=== PATIENT | male | born 1980 | race Two or more races ===

== ENCOUNTER 2025-03-10 18:29 | Inpatient (IN) | payer MEDICAID, OTHER ==
[~2025-03-10] VITALS: Ht 162.6 cm; Wt 67.2 kg
--- NOTE | 2025-03-10 19:06 | ED.PDOC ---
HPI Comments 43 year old male who came to ER by EMS for chest pains. Patient denies any medical problems nor does he take any medications. Patient does not have a PCP and has not seen a doctor in several years. States he was at work earlier, when he decided to drink a energy drink (Red Bull), something that he never does, and shortly afterwards he started having left sided chest pains, sharp, constant, unprovoked, radiating to his left arm. Also complaining of palpitations. Patient was given aspirin and nitroglycerin prior to arrival to the ER Chief Complaint: Chest Pain Time Seen by MD: 19:05 Reviewed Notes: Porcelain Turner Notes Allergies: Coded Allergies: NO KNOWN ALLERGIES (Unverified , 03/10/25) Information Source: Patient, Emergency Med Personnel Mode of Arrival: EMS Severity: Moderate Timing: Hours Duration: Since onset Prehospital treatment: ASA, NTG Location: Chest (L) Radiation: Arm (L) Quality: Sharp, Other (Palpitations) Onset: With Light Exertion Cardiac Risk Factors: None PE Risk Factors: None History of: None Associated Signs and Symptoms: Palpitations Review of Systems REVIEW OF SYSTEMS: No fever, no chills, or fatigue HEENT: No sore throat, no earache, no congestion, no neck pain. Cardiac: *(+) chest pain. (+) palpitations. Lungs: No shortness of breath, no cough. GI: No nausea, no vomiting, no diarrhea, no constipation, no abdominal pain : No dysuria, frequency, or urgency. No hematuria. Musculoskeletal: No joint pain , no joint swelling, no extremity edema. Skin: No rash, no itching. Neuro: No headache, no dizziness, no weakness Vital Signs Vital Signs Date Time Temp Pulse Resp B/P (MAP) Pulse Ox O2 Delivery O2 Flow Rate FiO2 03/10/25 20:03 99 16 97 Room Air* 0 21 03/10/25 20:02 98.3 145/82 (103) 98.3 Physical Exam General: Awake, alert and oriented. No acute distress. Skin: Skin in warm, dry and intact. Appropriate color for ethnicity. Nailbeds pink with no cyanosis. HEENT: The head is normocephalic and atraumatic. Conjunctivae are clear without exudates or hemorrhage. Sclera is non-icteric. EOM are intact. No signs of nystagmus. Eyelids are normal in appearance without swelling or lesions. Oral mucosa is pink and moist Neck: The neck is supple with normal range of motion. No JVD. Cardiac: Rapid rate, regular rhythm.. No murmurs, gallops, or rubs are auscultated. Respiratory: No signs of respiratory distress. Lung sounds are clear in all lobes bilaterally without rales, rhonchi, or wheezes. Abdominal: Abdomen is soft, non-tender without distention. Bowel sounds are present and normoactive in all four quadrants. Extremities: Upper and lower extremities are atraumatic in appearance without deformity or edema. Neurological: The patient is awake, alert and oriented to person, place, and time with normal speech. Speech is clear. There is no facial asymmetry. Psychiatric: Appropriate mood and affect. Good judgement and insight. No visual or auditory hallucinations. Past Medical History PAST MEDICAL HISTORY: Denies Surgical History: Denies all surgeries Family History Family History: Reviewed,noncontributory to illness Social History Smoker: Non-Smoker Alcohol: Denies ETOH Use Drugs: Denies Drug Use Lives In: Home EKG EKG : Pulse Rate (adult): 118 Cardiac Rhythm: ST Comments No STEMI Was a procedure done? Was a procedure done?: No CP Differential Dx Differential Diagnosis: Angina, Anxiety / Panic Attack, Electrolyte Disorder, Hyperventilation, Sinus Tachycardia Differential Diagnosis: Angina, Chest Wall Pain, Costochondritis, Esophageal reflux/spasm, Gastritis, Myocardial Infarction X-Ray, Labs, Meds, VS Vital Signs Date Time Temp Pulse Resp B/P (MAP) Pulse Ox O2 Delivery O2 Flow Rate FiO2 03/10/25 20:03 99 16 97 Room Air* 0 21 03/10/25 20:02 98.3 99 16 145/82 (103) 97 98.3 03/10/25 19:15 98.6 114 18 152/95 (114) 96 98.6 03/10/25 19:06 118 03/10/25 18:30 118 Lab Test 03/10/25 20:06 03/10/25 19:14 Range/Units Troponin I High Sensitivity Pending < 3 L </=54 ng/L White Blood Count 8.9 4.4-10.8 10^3/uL Red Blood Count 5.69 4.5-5.90 10^6/uL Hemoglobin 17.1 13.5-17.5 g/dL Hematocrit 48.8 41.0-53.0 % Mean Corpuscular Volume 85.8 80.0-100.0 fL Mean Corpuscular Hemoglobin 30.1 28.0-32.0 pg Mean Corpuscular Hemoglobin Concent 35.1 32.0-36.0 g/dL Red Cell Distribution Width 13.5 11.8-14.3 % Platelet Count 262 140-450 10^3/uL Mean Platelet Volume 8.9 6.9-10.8 fL Neutrophils (%) (Auto) 85.9 H 37.0-80.0 % Lymphocytes (%) (Auto) 8.4 L 10.0-50.0 % Monocytes (%) (Auto) 5.1 0.0-12.0 % Eosinophils (%) (Auto) 0.0 0.0-7.0 % Basophils (%) (Auto) 0.6 0.0-2.0 % Neutrophils # (Auto) 7.7 1.6-8.6 10 ^3/uL Lymphocytes # (Auto) 0.7 0.4-5.4 10 ^3/uL Monocytes # (Auto) 0.5 0-1.3 10 ^3/uL Eosinophils # (Auto) 0 0-0.8 10 ^3/uL Basophils # (Auto) 0.1 0-0.2 10 ^3/uL Nucleated Red Blood Cells 0.2 % Sodium Level 134 L 136-145 mmol/L Potassium Level 3.7 3.5-5.1 mmol/L Chloride Level 94 L 98-107 mmol/L Carbon Dioxide Level 20 20-31 mmol/L Anion Gap 20 H 5-15 Blood Urea Nitrogen 7 L 9-23 mg/dL Creatinine 1.09 0.700-1.30 mg/dL Glomerular Filtration Rate Calc 86 >90 mL/min BUN/Creatinine Ratio 6.4 L 10.0-20.0 Serum Glucose 381 H 74-106 mg/dL Calcium Level 11.1 H 8.7-10.4 mg/dL Current Medications Medications (Trade) Dose Ordered Sig/Loco Route Start Time Stop Time Status Last Admin Aspirin 324 mg ONCE ONCE PO 03/10/25 19:00 03/10/25 19:01 DC 03/10/25 20:01 Sodium Chloride 1,000 ml @ 1,000 mls/hr Q1H ONCE IV 5/10/25 19:00 03/10/25 19:59 DC 03/10/25 20:01 Lorazepam (Ativan Tablet) 0.5 mg ONCE ONCE PO 03/10/25 19:00 03/10/25 19:01 DC 03/10/25 20:00 XY CHEST TWO VIEWS ROUTINE CLINICAL HISTORY: Chest pain COMPARISON: None TECHNIQUE: Frontal and lateral view of the chest was obtained FINDINGS: Lines and Tubes: None Lungs: No focal consolidation. Pleura: No effusion. No pneumothorax. Cardiomediastinal contours: Unremarkable Bones: No acute osseous abnormality. IMPRESSION: 1. No acute cardiopulmonary disease. Time of 1ST Reevaluation: 19: Reevaluation 1ST: Unchanged Patient Education/Counseling: Other (Need for admission) Family Education/Counseling: No Family Present Departure 1 Departure Time of Disposition: : Impression: Primary Impression: Chest pain Additional Impression: DKA (diabetic ketoacidosis) Disposition: ADMITTED INPATIENT Condition: Stable Comments 44-year-old male who presents with chest pain. Found to be in new onset diabetes/DKA IV fluids bolus, insulin bolus initiated in the ED Patient admitted to hospitalist service for further treatment, evaluation and monitoring. Extensive evaluation was performed in attempt to identify or rule out: (See differential diagnosis section) The following tests were ordered, and results were reviewed by me and discussed with patient: (See diagnostic results section) The following test were independently interpreted by me: EKG, chest x-ray I reviewed and agreed with the following test results read by other providers: Chest x-ray I reviewed the following notes from the pt's past medical encounters: N/A Additional information was gathered from interviewing the following independent historians: EMS personnel Discussion of management or test interpretation with external physician/other qualified health career services manager: N/A Addressed an acute or chronic illness that poses a threat to life or bodily function: DKA Decision regarding hospitalization or escalation of hospital level of care: Risk and benefits of admission for further treatment of patient's condition was considered. Due to patient's current clinical condition, high risk of decline and poor outcome if discharged and need for further inpatient management and monitoring, patient will be admitted to the hospital. Discussed with patient. Drug therapy requiring intensive monitoring for toxicity: IV insulin Parenteral controlled substances: N/A Decision regarding elective major surgery with identified patient or procedure risk factors: N/A Decision regarding emergency major surgery: N/A Decision not to resuscitate or to de-escalate care because of poor prognosis: N/A Diagnosis or treatment significantly limited by social determinants of health: N/A Critical Care Note Critical Care Time?: Yes (35 min-critical care time only) Critical care comment: Due to a high probability of clinically significant, life threatening deterioration, the patient required my highest level of preparedness to intervene emergently and I personally spent this critical care time directly and personally managing the patient. This critical care time included obtaining a history; examining the patient; pulse oximetry; ordering and review of studies; arranging urgent treatment with development of a management plan; evaluation of patient's response to treatment; frequent reassessment; and, discussions with other providers. This critical care time was performed to assess and manage the high probability of imminent, life-threatening deterioration that could result in multi-organ failure. It was exclusive of separately billable procedures and treating other patients and teaching time. Please see my other sections and the rest of the note for further information on patient assessment and treatment. Stability Stability form required: No Heart Score Heart Score: Heart Score Response (Comments) Value History Moderate Suspicious 1 EKG Repolarization Disturb 1 Age <45 0 Risk Factors No known risk factors 0 Troponin Normal limit 0 Total 2 I personally scribed for AMELIA SEQUEIRA MD ([email or web address]) on 03/10/25 at 19:06. Electronically submitted by Heriberto Kitchen ([facility]). I personally scribed for AMELIA SEQUEIRA MD ([email or web address]) on 03/10/25 at 20:00. Electronically submitted by Heriberto Kitchen ([facility]). AMELIA SEQUEIRA MD March 10, 2025 19:06
--- NOTE | 2025-03-10 19:25 | DVH ---
XY CHEST TWO VIEWS ROUTINE CLINICAL HISTORY: Chest pain COMPARISON: None TECHNIQUE: Frontal and lateral view of the chest was obtained FINDINGS: Lines and Tubes: None Lungs: No focal consolidation. Pleura: No effusion. No pneumothorax. Cardiomediastinal contours: Unremarkable Bones: No acute osseous abnormality. IMPRESSION: 1. No acute cardiopulmonary disease. HS:Y
[2025-03-10 19:33] LABS: Basophils # (auto) 0.1 10 ^3/uL (0-0.2); Basophils % (auto) 0.6 % (0.0-2.0); Eosinophils # (auto) 0 10 ^3/uL (0-0.8); Hematocrit 48.8 % (41.0-53.0); Hemoglobin 17.1 g/dL (13.5-17.5); Lymphocytes # (auto) 0.7 10 ^3/uL (0.4-5.4); Lymphocytes % (auto) 8.4 % (10.0-50.0); Mean Corpuscular Hemoglobin 30.1 pg (28.0-32.0); Mean Corpuscular Hgb Conc. 35.1 g/dL (32.0-36.0); Mean Corpuscular Volume 85.8 fL (80.0-100.0); Monocytes # (auto) 0.5 10 ^3/uL (0-1.3); Monocytes % (auto) 5.1 % (0.0-12.0); Neutrophils # (auto) 7.7 10 ^3/uL (1.6-8.6); Neutrophils % (auto) 85.9 % (37.0-80.0); Nucleated Red Blood Cells % 0.2 %; Platelet Count (auto) 262 10^3/uL (140-450); Red Blood Cells 5.69 10^6/uL (4.5-5.90); Red Cell Distribution Width 13.5 % (11.8-14.3); White Blood Cell 8.9 10^3/uL (4.4-10.8)
[2025-03-10 19:41] LABS: Anion Gap 20 (5-15); Carbon Dioxide 20 mmol/L (20-31); Potassium 3.7 mmol/L (3.5-5.1)
[2025-03-10 19:47] LABS: BUN/Creatinine Ratio 6.4 (10.0-20.0)
[2025-03-10 19:57] LABS: Blood Urea Nitrogen 7 mg/dL (9-23); Calcium 11.1 mg/dL (8.7-10.4); Chloride 94 mmol/L (98-107); Glucose 381 mg/dL (74-106); Sodium 134 mmol/L (136-145)
[2025-03-10] MEDS: LORazepam 0.5 MG TAB PO ONE (20:00)
[2025-03-10] MEDS: ASPirin 81 mg TAB PO ONE (20:01)
[2025-03-10] MEDS: SODIUM CHLORIDE 0.9% 1,000 ML IV ONE ×2 (20:01→21:04)
[2025-03-10 20:03] VITALS: PULSE 99; RESP 16; O2SAT 97
[2025-03-10] MEDS: ACCU-CHEK COMFORT CURVE STRIP VI STA (20:16)
[2025-03-10 20:30] LABS: Base Excess -0.8 mmol/L (-2.0-3.0)
[2025-03-10] MEDS: InsuLIN REG 1unit/0.01ml Soln (100units/ml) IV ONE (20:30)
[2025-03-10] MEDS: ACETAMINOPHEN 325 MG TAB PO ONE (20:36)
[2025-03-10 20:45] LABS: Urine Bacteria None Seen /hpf (None Seen)
[2025-03-10 20:53] LABS: Urine Blood Negative /uL (Negative); Urine Budding Yeast OCCASIONAL /hpf (None Seen); Urine Clarity Clear (Clear); Urine Color Light-Yellow (Yellow); Urine Protein, UAD TRACE (Negative); Urine Specific Gravity 1.038 (1.001-1.035); Urine Squamous Epithelial Cell FEW /hpf (<5); Urine Urobilinogen Normal (Negative); Urine WBC < 1 /HPF (0-3); Urine pH 6.5 (5.0-9.0)
[2025-03-10] MEDS: DEXTROSE (50%) 50ML SYRG IV ONE ×2 (21:04→23:29)
[2025-03-10 22:29] VITALS: PULSE 91; RESP 20; O2SAT 97
[2025-03-10] MEDS ORDERED: DOCUSATE SOD 100 MG CAP PO PRN (22:45)
[2025-03-10] MEDS ORDERED: DEXTROSE (50%) 50ML SYRG IV PRN (22:45)
[2025-03-10] MEDS ORDERED: ACETAMINOPHEN 325 MG TAB PO PRN (22:45)
[2025-03-10] MEDS ORDERED: MORPHINE SULFATE INJ 2 MG/ml SYRG IV PRN (22:45)
[2025-03-10] MEDS ORDERED: ONDANSETRON HCL 4 MG/2 ML VIAL IV PRN (22:45)
[2025-03-10] MEDS ORDERED: LORazepam 2MG/ML-1ML VIAL IV PRN (22:45)
[2025-03-10] MEDS ORDERED: NITROGLYCERIN 0.4 MG SL TAB SL PRN (22:45)
--- NOTE | 2025-03-10 22:48 | DVHHP2 ---
History of Present Illness Reason for Visit: Diabetic ketoacidosis History of Present Illness The patient is a 43-year-old male who denies past medical history presented to [facility] ED with complaint of chest pain. Patient reports he was at work earlier, when he decided to drink a energy drink (Red Bull), and shortly afterwards he started having left sided chest pains, sharp, constant, unprovoked, radiating to his left arm with palpitations. Patient does not have a PCP and has not seen a doctor in several years. Patient was seen and evaluated in the ED, laboratory data shows WBC 8.9, platelets 262, sodium 134, potassium 3.7, BUN 7, creatinine 1.09, glucose 381, anion gap 20, acetone 3.430, troponin < 3, calcium 11.1, blood pressure 150/88, heart rate 95, temperature 98.9� F, O2 saturation 97% on room air. Patient was started on insulin drip, please see medication orders section in the computer. On my assessment, patient denied ch est pain, no headache, no dizziness, no diaphoresis, no shortness of breath, no nausea, no vomiting, no fever, no chills. Patient was admitted for further evaluation and medical management. Past Medical History Denies past medical history Past Surgical History Denies all surgeries Family History Reviewed, noncontributory to the management of this case. Past Social History The patient lives at home, denies smoking, alcohol or illicit drugs abuse. Review of Systems Constitutional: Yes: Weakness; No: Fever, Chills, Sweats, Malaise, Other Eyes: No: Pain, Vision change, Conjunctivae inflammation, Eyelid inflammation, Other, Redness ENT: No: Ear pain, Ear discharge, Nose pain, Nose discharge, Nose congestion, Mouth pain, Mouth swelling, Throat pain, Throat swelling, Other Respiratory: No: Cough, Dry, Shortness of breath, SOB with excertion, Wheezing, Hemoptysis, Pleuritic Pain, Sputum, Wheezing, Other Cardiovascular: Chest Pain, Palpitations; No: Orthopnea, Paroxysmal Noc. Dyspnea, Edema, Lt Headedness, Other Gastrointestinal: No: Nausea, Vomiting, Abdominal Pain, Diarrhea, Constipation, Melena, Hematochezia, Other Genitourinary: No Dysuria, No Frequency, No Incontinence, No Hematuria, No Retention, No Other Musculoskeletal: No: other, neck pain, shoulder pain, arm pain, back pain, hand pain, leg pain, foot pain Skin: No: Rash, Lesions, Jaundice, Bruising, Other Neurological: No: Weakness, Numbness, Incoordination, Change in speech, Confusion, Seizures, Other Allergies: Coded Allergies: NO KNOWN ALLERGIES (Unverified , 03/10/25) Medications Current Medications Medications Dose Ordered Sig/Loco Route Start Time Stop Time Status Last Admin Dose Admin Sodium Chloride 1,000 ml @ 500 mls/hr Q2H IV 03/10/25 22:45 03/11/25 02:44 UNV Sodium Chloride 1,000 ml @ 250 mls/hr Q4H IV 03/11/25 02:45 03/11/25 04:44 UNV Sodium Chloride 1,000 ml @ 150 mls/hr Q6H40M IV 03/11/25 04:45 UNV Insulin Human (Reg)/Sodium Chloride 100 ml @ 0.5 mls/hr Q24H IV 03/10/25 22:45 UNV Dextrose 50 ml UD PRN IV 03/10/25 22:45 UNV Diagnostic Test (Pha) 1 strip Q90MIN 03/11/25 00:00 UNV Insulin Glargine 15 units DAILY SC 03/11/25 10:00 UNV Aspirin 81 mg DAILY PO 03/11/25 10:00 UNV Lorazepam 0.5 mg Q8HP PRN IV 03/10/25 22:45 UNV Acetaminophen/ Hydrocodone Bitart 1 tab Q4HP PRN PO 03/10/25 22:45 UNV Ondansetron HCl 4 mg Q4HP PRN IV 03/10/25 22:45 UNV Docusate Sodium 100 mg BIDPRN PRN PO 03/10/25 22:45 UNV Acetaminophen 650 mg Q6HP PRN PO 03/10/25 22:45 UNV Nitroglycerin 0.4 mg Q5MINP PRN SL 03/10/25 22:45 UNV Morphine Sulfate 2 mg Q30M PRN IV 03/10/25 22:45 UNV Exam Vital Signs Vital Signs Date Time Temp Pulse Resp B/P (MAP) Pulse Ox O2 Delivery O2 Flow Rate FiO2 03/10/25 22:29 91 20 97 Room Air* 0 21 03/10/25 22:00 98.9 150/88 (108) 98.9 General Appearance: Alert, Oriented X3, Cooperative, No acute distress HEENT: Atraumatic, PERRLA, EOMI, Mucous membr. moist/pink Respiratory: Clear to auscultation, Normal air movement Cardiovascular: Regular rate, Normal S1, Normal S2, No murmurs Abdominal: Normal bowel sounds, Soft, No tenderness, No hepatospenomegaly, No masses Extremities: No clubbing, No cyanosis, No edema, Normal pulses, No tenderness/swelling Skin: No rashes, No breakdown, No significant lesion Neuro: Normal gait, Normal speech, Strength at 5/5 X4 ext, Normal tone, Sensation intact, Cranial nerves 3-12 NL, Reflexes 2+ Psych/Mental Status: Mental status NL, Mood NL Labs/Xrays Labs Test 03/10/25 20:59 03/10/25 20:40 03/10/25 20:20 03/10/25 20:06 Range/Units POC Glucose 364 H 70-106 mg/dl Urine Color Light-yellow Yellow Urine Clarity Clear Clear Urine pH 6.5 5.0-9.0 Urine Specific [place] 1.038 H 1.001-1.035 Urine Protein Trace H Negative Urine Ketones 3+ H Negative Urine Blood Negative Negative /uL Urine Nitrite Negative Negative Urine Bilirubin Negative Negative Urine Urobilinogen Normal Negative mg/dL Urine Leukocyte Esterase Negative Negative /uL Urine RBC <1 0 - 3 /hpf Urine Microscopic WBC < 1 0-3 /HPF Urine Squamous Epithelial Cells Few <5 /hpf Urine Bacteria None seen None Seen /hpf Urine Yeast (Budding) Occasional None Seen /hpf Urine Glucose 4+ H Normal mg/dL Blood Gas Specimen Type Arterial Blood Gas Sample Site Left radial Blood Gas Patient Temperature 37.0 Arterial Blood Date Drawn Arterial Blood pH 7.503 H 7.350-7.450 Arterial Blood Partial Pressure CO2 26.8 L 35.0-48.0 mmHg Arterial Blood Partial Pressure O2 80.9 L 83.0-108.0 mmHg Arterial Blood HCO3 20.6 L 21.0-28.0 mmol/L Arterial Blood Oxygen Saturation 96.3 94.0-98.0 % Arterial Blood Base Excess -0.8 -2.0-3.0 mmol/L Arterial Blood Oxyhemoglobin 95.2 94.0-98.0 % Arterial Blood Carboxyhemoglobin 0.6 0.5-1.5 % Arterial Blood Methemoglobin 0.5 0.0-1.5 % Alexis Test Yes Blood Gas Total Hemoglobin 16.30 13.5-17.5 g/dL Blood Gas Modality Room air FiO2 % 21.0 Magnesium Level 1.9 1.6-2.6 mg/dL Troponin I High Sensitivity < 3 L </=54 ng/L Beta-Hydroxybutyric Acid 3.430 H < 0.4 mmol/L Test 03/10/25 19:14 Range/Units White Blood Count 8.9 4.4-10.8 10^3/uL Red Blood Count 5.69 4.5-5.90 10^6/uL Hemoglobin 17.1 13.5-17.5 g/dL Hematocrit 48.8 41.0-53.0 % Mean Corpuscular Volume 85.8 80.0-100.0 fL Mean Corpuscular Hemoglobin 30.1 28.0-32.0 pg Mean Corpuscular Hemoglobin Concent 35.1 32.0-36.0 g/dL Red Cell Distribution Width 13.5 11.8-14.3 % Platelet Count 262 140-450 10^3/uL Mean Platelet Volume 8.9 6.9-10.8 fL Neutrophils (%) (Auto) 85.9 H 37.0-80.0 % Lymphocytes (%) (Auto) 8.4 L 10.0-50.0 % Monocytes (%) (Auto) 5.1 0.0-12.0 % Eosinophils (%) (Auto) 0.0 0.0-7.0 % Basophils (%) (Auto) 0.6 0.0-2.0 % Neutrophils # (Auto) 7.7 1.6-8.6 10 ^3/uL Lymphocytes # (Auto) 0.7 0.4-5.4 10 ^3/uL Monocytes # (Auto) 0.5 0-1.3 10 ^3/uL Eosinophils # (Auto) 0 0-0.8 10 ^3/uL Basophils # (Auto) 0.1 0-0.2 10 ^3/uL Nucleated Red Blood Cells 0.2 % Sodium Level 134 L 136-145 mmol/L Potassium Level 3.7 3.5-5.1 mmol/L Chloride Level 94 L 98-107 mmol/L Carbon Dioxide Level 20 20-31 mmol/L Anion Gap 20 H 5-15 Blood Urea Nitrogen 7 L 9-23 mg/dL Creatinine 1.09 0.700-1.30 mg/dL Glomerular Filtration Rate Calc 86 >90 mL/min BUN/Creatinine Ratio 6.4 L 10.0-20.0 Serum Glucose 381 H 74-106 mg/dL Calcium Level 11.1 H 8.7-10.4 mg/dL PATIENT: SEAN LANTIGUA ACCT: [id number] UNIT: [id number] : 1980 LOC: ER ROOM / BED: / AGE / SEX: 44 / M ADM STATUS: REG ER SERVICE 086 ORDERING PHYSICIAN: AMELIA SEQUEIRA MD PROCEDURE(s): CXR2 - CHEST TWO VIEWS ROUTINE REASON: Chest pain ORDER NUMBER(s): [id number], ACCESSION NUMBER(s): [id number] CHEST TWO VIEWS ROUTINE CLINICAL HISTORY: Chest pain COMPARISON: None TECHNIQUE: Frontal and lateral view of the chest was obtained FINDINGS: Lines and Tubes: None Lungs: No focal consolidation. Pleura: No effusion. No pneumothorax. Cardiomediastinal contours: Unremarkable Bones: No acute osseous abnormality. IMPRESSION: 1. No acute cardiopulmonary disease. Assessment/Plan Assessment/Plan Diabetic ketoacidosis Hypertension Acute chest pain Plan 1. Admit to intensive care unit 2. Breathing treatment 3. Pain control management 4. Management of fluids and electrolytes 5. Consultation for hospitalist 6. Diagnostic tests chest x-ray 7. DVT prophylaxis-on aspirin 8. Repeat labs CBC, CMP in a.m. 9. Continue with current medical management 10. Treatment plan discussed with patient and RN. Patient verbalized understanding. Plan discussed with: Patient, Other (RN) My Orders Orders - MIKAYLA WHEAT DNP Procedure Category Date Status Time Hemoglobin A1c LAB 03/10/25 Logged 22:33 Insulin Drip Protocol JACOB 03/10/25 In Process Sodium Chloride 0.9% PHA 03/10/25 Logged 22:45 Sodium Chloride 0.9% PHA 03/11/25 Logged 02:45 Sodium Chloride 0.9% PHA 03/11/25 Logged 04:45 Insulin Drip 100 PHA 03/10/25 Logged Unit/100ml (Myxredlin 22:45 Dextrose 50% Syringe PHA 03/10/25 Logged 22:45 Glucose Blood PHA 03/11/25 Logged (Accu-Chek Comfort 00:00 Abg W/ Co-Ox RT 03/10/25 Logged 22:33 Neurological JACOB 03/10/25 In Process Assessment 22:33 Vs/Hemodynamics JACOB 03/10/25 In Process 22:33 Insulin Lantus PHA 03/10/25 Logged (Glargine) (Lantus) 22:45 Insulin Lantus PHA 03/11/25 Logged (Glargine) (Lantus) 10:00 Aspirin Tablet PHA 03/11/25 Logged 10:00 Lorazepam 2mg/Ml Inj PHA 03/10/25 Logged (Ativan Inj) 22:45 Admit ADMIT 03/10/25 Transmitted 22:33 Allergies JACOB 03/10/25 In Process 22:33 Code Status CODE 03/10/25 Transmitted 22:33 Oxygen Per Hour RT 03/10/25 Transmitted 22:33 Hydrocodone-Acet PHA 03/10/25 Logged 5/325mg Tab (Edwards 22:45 Ondansetron Hcl PHA 03/10/25 Logged (Zofran) 22:45 Docusate Sodium PHA 03/10/25 Logged Capsule (Colace 22:45 Fall Risk Precautions JACOB 03/10/[address] 22:33 Complete Blood Count LAB 03/11/25 Verified 04:00 Comprehensive LAB 03/11/25 Verified Metabolic Panel 04:00 Condition: Critical JACOB 03/10/25 In Process 22:33 Acetaminophen Tablet PHA 03/10/25 Logged (Tylenol Tablet) 22:45 Sequential JACOB 03/10/25 In Process Compression Device Nitroglycerin PHA 03/10/25 Logged Sublingual (Ntrostat 22:45 Morphine Sulfate PHA 03/10/25 Logged Injection 22:45 Notify Of Changes JACOB 03/10/25 In Process From Base 22:33 Sole Stainer For JACOB 03/10/25 In Process 24 Hours 22:33 Emergency Dysrhythmia JACOB 03/10/25 In Process Protocol 22:33 Rhythm Strips Once JACOB 03/10/25 In Process Every Shift 22:33 Oxygen By Nasal RT 03/10/25 Transmitted Cannula 22:33 Consistent DIET 03/11/25 Transmitted Carb(Ccho)Diabetes Breakfast * Dietary Consult CONS 5/10/25 Transmitted 22:46 Hydralazine Injection PHA 03/10/25 Verified (Apresoline Inject 23:00 Problem List: (1) DKA (diabetic ketoacidosis) (2) Hypertension (3) Acute chest pain Date of Service: March 10, 2025 Billing Provider: MIKAYLA WEHAT DNP Common Visit Codes: [id number] INP/OBS CARE (HIGH) MIKAYLA WHEAT DNP March 10, 2025 22:48
[2025-03-10] MEDS ORDERED: hydrALAZINE HCL 20 MG/ML VL IV PRN (23:00)
[2025-03-10] MEDS: SODIUM CHLORIDE 0.9% 1,000 ML IV SCH (23:09)
[2025-03-10] MEDS: INSULIN DRIP 100 UNIT/100ML 100 ML IV SCH (23:09)
[2025-03-10] MEDS: INSULIN LANTUS (GLARGINE) 1 /0.01ml (100units/ml) SC ONE (23:28)
[2025-03-10] MEDS: ACCU-CHEK COMFORT CURVE STRIP VI SCH (23:58)
[2025-03-11] VITALS (8 sets, daily range): BP systolic 108–139; BP diastolic 60–81; PULSE 67–85; RESP 17–20; TEMP 97.9–99.1; O2SAT 96–99
[2025-03-11 00:13] LABS: Base Excess -0.2 mmol/L (-2.0-3.0)
[2025-03-11] MEDS: ACCU-CHEK COMFORT CURVE STRIP VI ONE (00:19)
[2025-03-11] MEDS: D5W/SOD CHLO 0.9% 1,000 ML IV ONE (01:45)
[2025-03-11] MEDS: SODIUM CHLORIDE 0.9% 1,000 ML IV SCH (01:51)
[2025-03-11 02:45] LABS: Basophils # (auto) 0.1 10 ^3/uL (0-0.2); Basophils % (auto) 0.6 % (0.0-2.0); Eosinophils # (auto) 0 10 ^3/uL (0-0.8); Hematocrit 41.1 % (41.0-53.0); Hemoglobin 14.2 g/dL (13.5-17.5); Lymphocytes # (auto) 2.4 10 ^3/uL (0.4-5.4); Lymphocytes % (auto) 23.6 % (10.0-50.0); Mean Corpuscular Hemoglobin 29.9 pg (28.0-32.0); Mean Corpuscular Hgb Conc. 34.5 g/dL (32.0-36.0); Mean Corpuscular Volume 86.5 fL (80.0-100.0); Monocytes # (auto) 1.1 10 ^3/uL (0-1.3); Monocytes % (auto) 10.5 % (0.0-12.0); Neutrophils # (auto) 6.7 10 ^3/uL (1.6-8.6); Neutrophils % (auto) 65.3 % (37.0-80.0); Nucleated Red Blood Cells % 0.2 %; Platelet Count (auto) 214 10^3/uL (140-450); Red Blood Cells 4.75 10^6/uL (4.5-5.90); Red Cell Distribution Width 13.8 % (11.8-14.3); White Blood Cell 10.2 10^3/uL (4.4-10.8)
[2025-03-11 03:00] LABS: Albumin 4.1 g/dL (3.2-4.8); Alkaline Phosphatase 100 U/L (46-116); Anion Gap 10 (5-15); Bilirubin, Total 1.2 mg/dL (0.2-1.0); Carbon Dioxide 24 mmol/L (20-31); Chloride 106 mmol/L (98-107); Sodium 140 mmol/L (136-145); Total Protein 6.7 g/dL (5.7-8.2)
[2025-03-11 03:02] LABS: Alanine Aminotransferase 195 U/L (7-40); Aspartate Aminotransferase 106 U/L (13-40); BUN/Creatinine Ratio 7.2 (10.0-20.0); Blood Urea Nitrogen < 5 mg/dL (9-23); Calcium 7.9 mg/dL (8.7-10.4); Glucose 114 mg/dL (74-106)
[2025-03-11] MEDS ORDERED: DEXTROSE (50%) 50ML SYRG IV PRN ×2 (03:30→18:30)
[2025-03-11] MEDS: D5W/SOD CHL 0.45% 1,000 ML IV ONE (03:30)
[2025-03-11] MEDS: ACCU-CHEK COMFORT CURVE STRIP VI SCH ×2 (04:00→21:55)
[2025-03-11] MEDS: InsuLIN REG 1unit/0.01ml Soln (100units/ml) SC SCH ×2 (04:03→21:51)
[2025-03-11] MEDS ORDERED: SODIUM CHLORIDE 0.9% 1,000 ML IV SCH (04:45)
[2025-03-11 04:47] LABS: Platelet Estimate Adequate; RBC Morphology Normal
[2025-03-11] MEDS: PANTOPRAZOLE 40 MG/10 ML VIAL INJ IV SCH (09:04)
[2025-03-11] MEDS: ASPirin 81 mg TAB PO SCH (09:05)
--- NOTE | 2025-03-11 09:51 | ECG ---
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
--- NOTE | 2025-03-11 09:51 | ECG ---
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
[2025-03-11] MEDS: INSULIN LANTUS (GLARGINE) 1 /0.01ml (100units/ml) SC SCH ×2 (10:00→21:49)
[2025-03-11] MEDS: HYDROcodone-ACET 5/325MG TAB PO PRN (14:22)
--- NOTE | 2025-03-11 18:23 | DVHPN2 ---
Assessment/Plan Assessment/Plan progress note 43 yo M wiht no PMH admitted for chest pain, found to have new onset diabetes. almost daily drinker with some tremmors physical exam AOx4 PERLLA MMM clear beath sounds s1 s2 RRR abdomen soft nontender no LE edema labs ekg imaging reviewed assessment and plan new onset DM, A1C 11, catabolic likely insulin dependant alcohol use no DKA, likely starvation ketosis and hyperglcemia contraction alcalosis hypovolemic hyponatremia hypokalemia basal bolus ISS insulin regimen CIWA protocol replete lytes IVF diet diabetic dvt ppx ambulatory Plan discussed with: Patient Date of Service: March 11, 2025 Billing Provider: KEON VIRAMONTES MD Common Visit Codes: [id number] INP/OBS CARE(HIGH) KEON VIRAMONTES MD March 11, 2025 18:23
--- NOTE | 2025-03-11 18:33 | ECG ---
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
[2025-03-12 00:52] VITALS: BP 122/77; PULSE 96; RESP 20; TEMP 98.2; O2SAT 98
[2025-03-12 05:00] VITALS: BP 113/75; PULSE 65; RESP 16; TEMP 98.1; O2SAT 97
[2025-03-12] MEDS: INSULIN LISPRO (HUMAN) 100 UNITS/ML ML SC SCH (06:05)
[2025-03-12 08:00] VITALS: PULSE 99
[2025-03-12 08:24] LABS: Anion Gap 13 (5-15); Chloride 103 mmol/L (98-107); Potassium 3.8 mmol/L (3.5-5.1)
[2025-03-12 08:26] LABS: Calcium 9.7 mg/dL (8.7-10.4)
[2025-03-12 08:30] VITALS: BP 134/82; PULSE 103; RESP 18; TEMP 98.1; O2SAT 97
[2025-03-12 08:30] LABS: Glucose 76 mg/dL (74-106)
[2025-03-12 08:35] LABS: BUN/Creatinine Ratio 6.3 (10.0-20.0); Blood Urea Nitrogen < 5 mg/dL (9-23); Carbon Dioxide 17 mmol/L (20-31); Sodium 133 mmol/L (136-145)
[2025-03-12] MEDS ORDERED: BLOO-200 XX (09:25)
[2025-03-12] MEDS ORDERED: GLUC1TES63 VI (09:25)
[2025-03-12] MEDS ORDERED: ALCO70PA28 XX (09:25)
[2025-03-12] MEDS ORDERED: LANC-347 XX (09:25)
[2025-03-12] MEDS ORDERED: INSUINJ37 SC (09:25)
[2025-03-12] MEDS ORDERED: METF-370 PO (09:25)
[2025-03-12] MEDS ORDERED: INSU-450 XX (09:25)
[2025-03-12] MEDS ORDERED: ASPI-325 PO (09:25)
[2025-03-12] MEDS ORDERED: ATOR-507 PO (09:25)
--- NOTE | 2025-03-12 09:27 | DVHDS2 ---
Discharge Summary Date of Admission March 10, 2025 at 22:33 Date of Discharge: March 12, 2025 Labs/Diagnostic Data: Laboratory Results Test 03/12/25 07:19 03/12/25 05:25 03/11/25 02:30 03/11/25 00:08 Sodium Level 133 mmol/L (136-145) Potassium Level 3.8 mmol/L (3.5-5.1) Chloride Level 103 mmol/L (98-107) Carbon Dioxide Level 17 mmol/L (20-31) Anion Gap 13 (5-15) Blood Urea Nitrogen < 5 mg/dL (9-23) Creatinine 0.80 mg/dL (0.700-1.30) Glomerular Filtration Rate Calc 112 mL/min (>90) BUN/Creatinine Ratio 6.3 (10.0-20.0) Serum Glucose 76 mg/dL (74-106) Calcium Level 9.7 mg/dL (8.7-10.4) POC Glucose 108 mg/dl (70-106) White Blood Count 10.2 10^3/uL (4.4-10.8) Red Blood Count 4.75 10^6/uL (4.5-5.90) Hemoglobin 14.2 g/dL (13.5-17.5) Hematocrit 41.1 % (41.0-53.0) Mean Corpuscular Volume 86.5 fL (80.0-100.0) Mean Corpuscular Hemoglobin 29.9 pg (28.0-32.0) Mean Corpuscular Hemoglobin Concent 34.5 g/dL (32.0-36.0) Red Cell Distribution Width 13.8 % (11.8-14.3) Platelet Count 214 10^3/uL (140-450) Mean Platelet Volume 8.6 fL (6.9-10.8) Neutrophils (%) (Auto) 65.3 % (37.0-80.0) Lymphocytes (%) (Auto) 23.6 % (10.0-50.0) Monocytes (%) (Auto) 10.5 % (0.0-12.0) Eosinophils (%) (Auto) 0.0 % (0.0-7.0) Basophils (%) (Auto) 0.6 % (0.0-2.0) Neutrophils # (Auto) 6.7 10 ^3/uL (1.6-8.6) Lymphocytes # (Auto) 2.4 10 ^3/uL (0.4-5.4) Monocytes # (Auto) 1.1 10 ^3/uL (0-1.3) Eosinophils # (Auto) 0 10 ^3/uL (0-0.8) Basophils # (Auto) 0.1 10 ^3/uL (0-0.2) Nucleated Red Blood Cells 0.2 % Platelet Estimate Adequate Red Blood Cell Morphology Normal Total Bilirubin 1.2 mg/dL (0.2-1.0) Aspartate Amino Transferase (AST) 106 U/L (13-40) Alanine Aminotransferase (ALT) 195 U/L (7-40) Alkaline Phosphatase 100 U/L (46-116) Total Protein 6.7 g/dL (5.7-8.2) Albumin 4.1 g/dL (3.2-4.8) Blood Gas Specimen Type Arterial Blood Gas Sample Site Left radial Blood Gas Patient Temperature 37.0 Arterial Blood Date Drawn [id number] Arterial Blood pH 7.512 (7.350-7.450) Arterial Blood Partial Pressure CO2 27.1 mmHg (35.0-48.0) Arterial Blood Partial Pressure O2 84.0 mmHg (83.0-108.0) Arterial Blood HCO3 21.2 mmol/L (21.0-28.0) Arterial Blood Oxygen Saturation 96.5 % (94.0-98.0) Arterial Blood Base Excess -0.2 mmol/L (-2.0-3.0) Arterial Blood Oxyhemoglobin 95.5 % (94.0-98.0) Arterial Blood Carboxyhemoglobin 0.5 % (0.5-1.5) Arterial Blood Methemoglobin 0.5 % (0.0-1.5) Alexis Test Yes Blood Gas Total Hemoglobin 15.10 g/dL (13.5-17.5) Blood Gas Modality Room air FiO2 % 21.0 Test 03/10/25 20:40 03/10/25 20:06 03/10/25 19:14 Urine Color Light-yellow (Yellow) Urine Clarity Clear (Clear) Urine pH 6.5 (5.0-9.0) Urine Specific [place] 1.038 (1.001-1.035) Urine Protein Trace (Negative) Urine Ketones 3+ (Negative) Urine Blood Negative /uL (Negative) Urine Nitrite Negative (Negative) Urine Bilirubin Negative (Negative) Urine Urobilinogen Normal mg/dL (Negative) Urine Leukocyte Esterase Negative /uL (Negative) Urine RBC <1 /hpf (0 - 3) Urine Microscopic WBC < 1 /HPF (0-3) Urine Squamous Epithelial Cells Few /hpf (<5) Urine Bacteria None seen /hpf (None Seen) Urine Yeast (Budding) Occasional /hpf (None Urine Glucose 4+ mg/dL (Normal) Magnesium Level 1.9 mg/dL (1.6-2.6) Troponin I High Sensitivity < 3 ng/L (</=54) Beta-Hydroxybutyric Acid 3.430 mmol/L (< 0.4) Hemoglobin A1c 11.4 % A1C (<5.7) Other Laboratory Tests 03/12/25 07:19 03/11/25 02:30 Brief Hx & Hospital Course: 43 yo M wiht no PMH admitted for chest pain, found to have new onset diabetes. almost daily drinker with some tremmors. chest pain noncardiac, started basal bolus insulin with improvement in glucose, dc with long acting plus metformin. ciwa low throughout except tremmors. not in withdrawal, tremmor likely from other cause. dc clinic follow up Condition at Discharge: Good Final Diagnosis/Problems List non cardiac chest pain likely dyspepsia new onset DM Discharge Disposition: Home Discharge Instruct/Medications Diet: Cardiac 2g Na,low cholest Activity: No Restrictions, As Tolerated Follow Up/Referral: dc clinic 2 weeks Medications: insulin lantus metformin asa lipitor Discharge Statement: "Patient was advised to return to the ER or call 911 if any headaches, dizziness, shortness of breath, chest pain, abdominal pain, bleeding, fevers, or worsening of medical condition. Patient was counseled about treatment plan, medications, possible side effects, patient�verbalized understanding. All questions were answered to the best of my ability. This discharge took greater then 30 minutes in planning, reviewing documentation, counseling the patient, and discussing with other team members." ASSESSMENT ASSESSMENT Assessment new onset DM Date of Service: March 12, 2025 Billing Provider: KEON VIRAMONTES MD Common Visit Codes: 84069-SCP/OBS DISCH DAY >30min KEON VIRAMONTES MD March 12, 2025 09:27
[2025-03-12] MEDS ORDERED: FAMO-161 PO (09:28)
== END 2025-03-12 11:05 | disposition home or self-care (01) | DRG 251 ==
LOC: ER 18:29 → EDBD 18:29 → OVERFLOW 22:33 → TELE-WESTW 03-11 14:44
PROVIDERS: ADMIT Student in an Organized Health Care Education/Training Program; ATTEND Student in an Organized Health Care Education/Training Program
DX: R10.13 Epigastric pain (principal); E87.1 Hypo-osmolality and hyponatremia; E11.65 Type 2 diabetes mellitus with hyperglycemia; E86.1 Hypovolemia; I10 Essential (primary) hypertension; E87.6 Hypokalemia; F10.90 Alcohol use, unspecified, uncomplicated; Z79.899 Other long term (current) drug therapy; Y90.9 Presence of alcohol in blood, level not specified
CPT/HCPCS: 36415; 36600; 71046; 80048; 80053; 81001; 82010; 82805; 82962; 83036; 83735; 84484; 85025; 93005; 96360; 96361; 99291; G0378; J1815; J2470